=== PATIENT | female | born 1965 | race American Indian/Alaskan Native ===

== ENCOUNTER 2018-05-18 10:46 | Outpatient (CLI) | payer BC ==
--- NOTE | 2018-05-18 12:33 | Mammography Report ---
BILATERAL DIGITAL DIAGNOSTIC MAMMOGRAM with CAD and RIGHT BREAST ULTRASOUND: 05/18/18 CLINICAL: Right breast lump. History of bilateral reduction mammoplasty. COMPARISON:05/24/16 and 03/26/15 mammograms and a 2017 mammogram from [facility]. FINDINGS: The breasts are heterogeneously dense, which may obscure small masses. The fibroglandular pattern is stable compared to previous exams.No mass, architectural distortion or suspicious calcifications . A right upper-outer palpable marker overlies relatively dense fibroglandular structures which are unchanged compared to previous exams . A similar marker was placed in the same area on the 2017 mammogram. Ultrasound of right breast demonstrated normal fibroglandular structures in the outer breast there she describes a lump and pain. I scanned her myself and found no mass, cyst or shadowing. IMPRESSION: Negative mammogram and negative right breast ultrasound. BI-RADS CATEGORY: 1 - - Negative RECOMMENDATION: Clinical follow-up and routine mammographic screening in one year. ACR BI-RADS MAMMOGRAPHIC CODES: 0 = Needs additional imaging evaluation; 1 = Negative; 2 = Benign; 3 = Probably benign; 4 = Suspicious; 5 = Malignant; 6 = Known biopsy-proven malignancy COMMENT: 1. Dense breast tissue, i.e., adenosis, fibrocystic changes, etc., may obscure an underlying neoplasm. 2. Approximately 10% of cancers are not detected with mammography. 3. A negative mammography report should not delay biopsy if a clinically suspicious mass is present. COMMENT: Patient follow-up letters are generated by our [employer] application.
== END 2018-05-18 10:47 | disposition home or self-care (01) ==
LOC: SPVWC 10:46
PROVIDERS: ATTEND Obstetrics & Gynecology
DX: R92.8 Other abnormal and inconclusive findings on diagnostic imaging of breast (principal); Z90.710 Acquired absence of both cervix and uterus; Z90.79 Acquired absence of other genital organ(s)
CPT/HCPCS: 77066